=== PATIENT | female | born 1970 | race Caucasian/White ===

== ENCOUNTER 2024-05-04 08:24 | Outpatient (CLI) | payer BC | END 2024-05-04 08:25 | disposition home or self-care (01) | LOC: NAV RAD 08:24 | PROVIDERS: ATTEND Nurse Practitioner Family | DX: M54.50 Low back pain, unspecified (principal); M47.816 Spondylosis without myelopathy or radiculopathy, lumbar region; M47.814 Spondylosis without myelopathy or radiculopathy, thoracic region | CPT/HCPCS: 72100; 72170 ==